=== PATIENT | female | born 1960 | race Two or more races ===

== ENCOUNTER 2019-09-19 12:46 | Outpatient (CLI) | payer MEDICAID ==
[~2019-09-19] VITALS: Ht 152.4 cm; Wt 74.8 kg
[2019-09-19 14:34] VITALS: BP 115/69
[2019-09-19] MEDS ORDERED: FLUOXETINE HCL10 M2 ORAL (14:34)
[2019-09-19] MEDS ORDERED: DICLOFENAC SODI50 MG ORAL (14:34)
[2019-09-19] MEDS ORDERED: ACETAMINOPHEN500 M3 ORAL (14:34)
[2019-09-19] MEDS ORDERED: ARTIFICIAL TEA1 EAC2 OP (14:34)
--- NOTE | 2019-09-19 20:15 | Consultation ---
DATE OF CONSULTATION: 09/19/2019 CONSULTING PHYSICIAN: Grady Cortez M.D. CHIEF COMPLAINT: GI bleeding. HISTORY OF PRESENT ILLNESS: This is a 59-year-old female with multiple medical problems. Apparently, she has been having rectal bleeding and also now turns out to be black tarry stools. She complained of some epigastric abdominal pain. PAST MEDICAL HISTORY: 1. GERD. 2. Depression. PAST SURGICAL HISTORY: 1. History of breast reduction. 2. Shoulder surgery. MEDICATIONS: Tylenol, diclofenac and fluoxetine. FAMILY HISTORY: Noncontributory. SOCIAL HISTORY: The patient denies any tobacco, alcohol, or drug abuse. ALLERGIES: No known drug allergies. REVIEW OF SYSTEMS: Positive for GERD, abdominal pain, black stools. PHYSICAL EXAMINATION: VITAL SIGNS: Temperature 99.2, blood pressure 115/69, pulse 70, respirations 20. HEENT: Normocephalic and atraumatic. Sclerae are anicteric. NECK: Supple. No evidence of obvious lymphadenopathy. CARDIOVASCULAR: Regular rate and rhythm. Plus S1 and S2. LUNGS: Clear to auscultation bilaterally. ABDOMEN: Positive bowel sounds. Soft. Minimal tenderness to palpation in bilateral lower quadrants. No rebound. No guarding. No peritoneal sign. EXTREMITIES: No cyanosis, no clubbing, no edema. ASSESSMENT AND PLAN: This is a 59-year-old female, who seems to be having possible upper GI bleeding given the black tarry stools. The patient is also on diclofenac that can increase the risk of GI bleeding. The patient is age 59 and also needs a colonoscopy. The patient was told to stop the diclofenac and was given prescription for omeprazole. She was given prescription for labs to be done for CBC, BMP, and PT/PTT. We are going to send the urgent request for endoscopy and colonoscopy, but meanwhile the patient was told if she is getting worse to go to the emergency room. Grady Cortez M.D. DR: KERRI JOB#: [id number] CC:
== END 2019-09-19 15:41 | disposition home or self-care (01) ==
LOC: PAN 12:46
DX: R10.13 Epigastric pain (principal); K21.9 Gastro-esophageal reflux disease without esophagitis
CPT/HCPCS: G0463

== ENCOUNTER 2019-10-03 12:42 | Outpatient (CLI) | payer MEDICAID ==
[~2019-10-03 12:42] MED LIST: ACETAMINOPHEN500 M3 ORAL; ARTIFICIAL TEA1 EAC2 OP; DICLOFENAC SODI50 MG ORAL; FLUOXETINE HCL10 M2 ORAL
[2019-10-03 13:06] VITALS: BP 128/65
--- NOTE | 2019-10-03 13:22 | General Progress Note ---
Assessment/Plan Assessment/Plan: s/p EGD and colonoscopy gastritis duodentitis hemorrhoids ppi abd us RTC prn Subjective ROS Limited/Unobtainable: Yes Allergies: Coded Allergies: No Known Allergies (Unverified , 09/19/19) Objective General Appearance: alert EENT: normal ENT inspection Neck: supple Cardiovascular: normal rate Respiratory/Chest: lungs clear Abdomen: normal bowel sounds, non tender, soft Extremities: non-tender Grady Cortez MD Oct 03, 2019 13:22
== END 2019-10-03 15:19 | disposition home or self-care (01) ==
LOC: PAN 12:42
DX: K29.70 Gastritis, unspecified, without bleeding (principal); K64.9 Unspecified hemorrhoids; K29.80 Duodenitis without bleeding; R10.9 Unspecified abdominal pain
CPT/HCPCS: 99212

== ENCOUNTER 2020-05-05 10:37 | Outpatient (CLI) | payer MEDICAID ==
[2020-05-05 10:48] VITALS: BP 136/85
--- NOTE | 2020-05-05 11:42 | General Progress Note ---
Subjective ROS Limited/Unobtainable: Yes Allergies: Coded Allergies: No Known Allergies (Unverified , 09/19/19) Objective Last 24 Hour Vital Signs Date Time Temp Pulse Resp B/P (MAP) Pulse Ox O2 Delivery O2 Flow Rate FiO2 05/05/20 10:48 98.0 75 16 136/85 95 General Appearance: alert EENT: normal ENT inspection Neck: supple Cardiovascular: normal rate Respiratory/Chest: chest wall non-tender Abdomen: normal bowel sounds, non tender, soft Extremities: non-tender Assessment/Plan Assessment/Plan: Assessment/Plan Assessment/Plan: s/p EGD and colonoscopy gastritis duodenitis hemorrhoids ppi abd us>>> fatty liver patient was told to loose weight refill ppi RTC 3 months Grady Cortez MD May 05, 2020 11:42
== END 2020-05-05 12:37 | disposition home or self-care (01) ==
LOC: PAN 10:37
DX: K29.70 Gastritis, unspecified, without bleeding (principal); K29.80 Duodenitis without bleeding; K64.9 Unspecified hemorrhoids; K76.0 Fatty (change of) liver, not elsewhere classified
CPT/HCPCS: 99212

== ENCOUNTER 2020-07-07 10:07 | Outpatient (CLI) | payer MEDICAID ==
--- NOTE | 2020-07-07 14:46 | General Progress Note ---
Subjective ROS Limited/Unobtainable: Yes Allergies: Coded Allergies: No Known Allergies (Unverified , 09/19/19) Objective General Appearance: alert EENT: normal ENT inspection Neck: supple Cardiovascular: normal rate Respiratory/Chest: decreased breath sounds Abdomen: normal bowel sounds, non tender, soft Extremities: non-tender Assessment/Plan Assessment/Plan: Assessment/Plan Assessment/Plan: s/p EGD and colonoscopy gastritis duodenitis hemorrhoids ppi abd us>>> fatty liver patient was told to loose weight add align RTC 3 months Grady Cortez MD Jul 07, 2020 14:46
== END 2020-07-07 12:07 | disposition home or self-care (01) ==
LOC: PAN 10:07
DX: K29.70 Gastritis, unspecified, without bleeding (principal); K29.80 Duodenitis without bleeding; K64.9 Unspecified hemorrhoids; K76.0 Fatty (change of) liver, not elsewhere classified
CPT/HCPCS: 99212